=== PATIENT | male | born 1965 | race Caucasian/White ===

== ENCOUNTER 2020-07-29 11:06 | Day surgery (SDC) | payer BC, MEDICARE ==
[~2020-07-29] VITALS: Ht 188 cm; Wt 83.2 kg
[2020-07-29] MEDS ORDERED: SODIUM CHLORIDE 0.9% 1,000 ML IV SCH (11:30)
[2020-07-29 11:31] VITALS: BP 169/103
[2020-07-29 12:26] LABS: ANION GAP 6 mmol/L (5-15); CALCIUM 9.1 mg/dL (8.5-10.1); CHLORIDE 107 mmol/L (98-107)
[2020-07-29 12:28] LABS: CREATININE 0.94 mg/dL (0.7-1.3)
[2020-07-29 12:33] LABS: BASOPHILS % (AUTO) 1 % (0-1); EOSINOPHILS % (AUTO) 0 % (1-7); LYMPHOCYTES % (AUTO) 32 % (22-44); MEAN CORPUSCULAR HEMOGLOBIN 31.7 pg (27.5-34.5); MONOCYTES % (AUTO) 10 % (2-9); NEUTROPHILS % (AUTO) 57 % (42-75); PLATELET COUNT 229 x10^3/uL (130-400); RED BLOOD COUNT 4.71 x10^6/uL (4.38-5.82); RED CELL DISTRIBUTION WIDTH 13.4 % (9.4-14.8)
[2020-07-29 12:37] LABS: MD NO
[2020-07-29] MEDS ORDERED: FENTANYL PF 100 MCG/2ML ONE (12:47)
[2020-07-29] MEDS ORDERED: MIDAZOLAM 1 MG/ML, 5ML ONE (12:47)
[2020-07-29] MEDS ORDERED: ISOPROTERENOL 0.2MG/ML, 5ML ONE (12:47)
[2020-07-29] MEDS ORDERED: ADENOSINE 6 MG/2 ML ONE (12:47)
[2020-07-29] MEDS ORDERED: LIDOCAINE 2%, 20ML ONE (12:48)
[2020-07-29] MEDS ORDERED: ATROPINE SYRINGE 0.1 MG/ML, 10ML ONE (15:20)
[2020-07-29 19:07] VITALS: BP 143/84
== END 2020-07-29 20:39 | disposition home or self-care (01) ==
LOC: CACL 11:06 → 5SO 15:43 → CACL 20:39
PROVIDERS: ATTEND Internal Medicine Clinical Cardiac Electrophysiology
DX: I47.1 Supraventricular tachycardia (principal); I44.1 Atrioventricular block, second degree; Z79.899 Other long term (current) drug therapy
CPT/HCPCS: 36415; 80048; 85025; 93613; 93623; 93653; 99156; 99157; C1730; C1894; C2630; J0461; J2250; J3010; G0378; J0153

== ENCOUNTER 2021-02-25 16:00 | Emergency (ER) | payer BC ==
[~2021-02-25] VITALS: Ht 188 cm; Wt 82.0 kg
[2021-02-25] MEDS ORDERED: METHOCARBAMOL 750 MG TABLET PO ONE (17:30)
[2021-02-25] MEDS ORDERED: DIPH,PERTUSS(ACELL),TET VAC/PF 0.5 ML IM-VACC ONE (17:30)
[2021-02-25] MEDS ORDERED: KETOROLAC 30 MG/1 ML IM ONE (17:30)
[2021-02-25 19:02] VITALS: BP 128/76
--- NOTE | 2021-02-25 19:02 | NUR ---
Patient given discharge instructions and they have confirmed that they understand the instructions. Patient ambulatory with steady gait.
== END 2021-02-25 19:08 | disposition home or self-care (01) ==
LOC: ED 16:55
DX: S22.41XA Multiple fractures of ribs, right side, initial encounter for closed fracture (principal); S42.021A Displaced fracture of shaft of right clavicle, initial encounter for closed fracture; I47.1 Supraventricular tachycardia; V19.9XXA Pedal cyclist (driver) (passenger) injured in unspecified traffic accident, initial encounter; Y93.89 Activity, other specified; Y92.009 Unspecified place in unspecified non-institutional (private) residence as the place of occurrence of the external cause; Y99.8 Other external cause status
CPT/HCPCS: 71101; 73000; 96372; 99284; J1885